=== PATIENT | female | born 1980 | race Caucasian/White ===

== ENCOUNTER 2018-01-04 11:03 | Emergency (ER) | payer MEDICAID ==
[2018-01-04] MEDS: TRIMETHOPRIM/SULFAMETHOX (DS) TAB PO (12:05)
[2018-01-04] MEDS: CEPHALEXIN 500 MG CAP PO (12:05)
[2018-01-04] MEDS: IBUPROFEN 600 MG TAB PO (12:06)
== END 2018-01-04 12:59 | disposition home or self-care (01) ==
LOC: FTE 11:03
DX: L03.012 Cellulitis of left finger (principal)
CPT/HCPCS: 73140; 99284-25